=== PATIENT | female | born 1990 | race Caucasian/White ===

== ENCOUNTER 2025-01-19 06:22 | Inpatient (IN) | payer MEDICAID, SELFPAY ==
[2025-01-19] VITALS (53 sets, daily range): BP systolic 117–190; BP diastolic 61–116; PULSE 49–149; RESP 16; TEMP 36.6–36.7; O2SAT 82–100; BMI 45.7
[2025-01-19 06:56] LABS: Hematocrit 34.4 % (36-47); Hemoglobin 11.10 g/dL (11.27-16.99); Mean Corpuscular HGB Conc 32.3 g/dL (30-55); Mean Corpuscular Hemoglobin 28.5 pg (27-33); Mean Corpuscular Volume 88.2 fl (85-98); Nucleated Red Blood Cells % 0 %; Platelet Count 224 10^3/cmm (157-399); Red Blood Count 3.90 10^6/uL (3.85-5.65); White Blood Count 15.33 10^3/uL (3.29-11.43)
[2025-01-19] MEDS: ampicillin 2,000 MG in sodium chloride 0.9% (plus) 50 ML 100 MG IV (06:59)
[2025-01-19 07:18] LABS: Hepatitis B Surface Antigen Non-Reactive (Nonreactive)
--- NOTE | 2025-01-19 07:18 | PM.OBGYHP ---
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 Patient denies rupture membranes. Patient denies receiving any care during this . History of last with no care. Patient gives history of smoking marijuana throughout , last encounter 2 days ago. EFM?category 1 Cervix?8 cm / 90%/-2 vertex with bloody show Fundal height?39 cm Management of labor reviewed with patient, with unknown GBS status will start ampicillin. Review of Systems General: Reports: 10 or more systems reviewed and unremarkable except in HPI and below Medications/Allergies Home Medications ?Medication ?Instructions ?Recorded ?Confirmed ?Last Taken ?Type albuterol 90 mcg/actuation aerosol 90 mcg inhalation PRN PRN 01/19/25 01/19/25 Unknown History inhaler Shortness Of Breath Or Wheezing ibuprofen 400 mg tablet 400 mg PO Q6H PRN Pain 01/19/25 01/19/25 Unknown History Allergies Allergy/AdvReac Type Severity Reaction Status Date / Time fish oil Allergy ALGY-Anaphy Verified 01/19/25 07:14 laxis History History History 4 Term Miscarriages/Ectopic Living Children 3 Vitals/I&O/Wt Last Vital Signs Pulse 64 01/19/25 07:09 BP 152/88 01/19/25 07:09 Weight last 48 hrs Weight 132.449 kg Weight 132.449 kg Physical Exam Const: COMMON NORMALS: no acute distress, patient oriented x3, healthy appearing, alert and well nourished HENMT: COMMON NORMALS: normocephalic Resp: COMMON NORMALS: normal respiratory effort and clear to auscultation bilaterally Cardio: COMMON NORMALS: regular rate and regular rhythm Back/Pelvis: OTHER: Abdomen soft Fundal height 39 cm Extremity: COMMON NORMALS: no clubbing, cyanosis or edema and no calf tenderness Neuro: COMMON NORMALS: patient oriented x3 and moves all extremities Data 01/19/25 06:40 Results Labs OB ([facility]): Blood Type Pending Today Antibody Screen Pending Today Hct, (36-47) 34.4 % L Today Hgb, (11.27-16.99) 11.10 g/dL L Today Rho(D) Type Pending Today Plt Count, (157-399) 224 10^3/cmm Today Hep Bs Antigen, (Nonreactive) Non-reactive Today Rubella IgG Antibody, (0.0-10.0) 22.9 IU/mL H Today RPR Pending Today HIV 1&2 Ab & HIV 1 Ag, (Non-Reactiv) Non-reactive Today Hemoglobin A1c, (4.0-6.0) 5.4 % Today A&P Assessment and plan 1. 39 weeks gestation of : A 1. Estimated gestational age based on fundal height measurement of 39 cm 2. Active labor 3. Unknown GBS 4. No care 5. History of marijuana use during this 2. No care in current : 3. Asthma: PDMP PDMP Reviewed: Not Reviewed Attestations Medical Necessity Statement*: 34-year-old female G4, P3 with unknown LMP estimated 39 weeks gestation by fundal height admitted to labor and delivery for management of labor in active labor at 8 cm. Coding Level of Care Code Acute Code for Chg Fwd Diagnoses 39 weeks gestation of Z3A.39 No care in current O09.30 Asthma J45.909
[2025-01-19 07:19] LABS: Estmated Average Glucose 108; Hemoglobin A1C 5.4 % (4.0-6.0)
[2025-01-19 07:26] LABS: HIV 1 & 2 Antigen Non-Reactive (Non-Reactiv)
[2025-01-19 07:48] LABS: Rapid Plasma Reagin Syphilis Nonreactive (Nonreactive)
[2025-01-19] MEDS: ROPivacaine premix 200 MG/100 ML PREMIX 10 MG EPIDURAL (08:01)
--- NOTE | 2025-01-19 08:09 | ANES.PREANE2 ---
Pre-Anesthetic Assessment Height/Weight: Height 5 ft 7 in Weight 292 lb Pulse BP Pulse Ox 64 131/68 99 01/19/25 08:06 01/19/25 08:06 01/19/25 08:05 Preop Diagnosis: IUP Was Beta Garett taken within 24 hours: N/A Was Clonidine taken within 24 hours: N/A Social No alcohol and No tobacco Exam alert, oriented x 3, clear to auscultation bilaterally and regular rate & rhythm Airway Submandibular: within normal limits Cervical ROM: within normal limits Mallampati: Class II Dentition: full Anesthetic Plan ASA status: 3 Anesthesia: Regional (specify below) Other: Patient presents in active labor, suspected 33 weeks. No care Patient states that she has had multiple epidurals in the past without issues Denies any cardiac or pulmonary issues Labs reviewed, WBC 15. Platelet count 224 Plan for CSE Medications/Allergies Home Medications ?Medication ?Instructions ?Recorded ?Confirmed ?Last Taken ?Type albuterol 90 mcg/actuation aerosol 90 mcg inhalation PRN PRN 01/19/25 01/19/25 Unknown History inhaler Shortness Of Breath Or Wheezing ibuprofen 400 mg tablet 400 mg PO Q6H PRN Pain 01/19/25 01/19/25 Unknown History Allergies Allergy/AdvReac Type Severity Reaction Status Date / Time fish oil Allergy ALGY-Anaphy Verified 01/19/25 07:14 laxis Current Medications Generic Name Dose Route Start Last Admin Trade Name Freq PRN Reason Stop Dose Admin Lactated Ringer's 1,000 mls @ 999 mls/hr 01/19/25 06:53 01/19/25 06:58 Lactated Ringers IV 999 mls/hr .Q1H1M PRN Administration See label comments Ropivacaine 200 mg in 100 mls @ 10 mls/hr 01/19/25 07:00 01/19/25 08:01 Naropin Premix EPIDURAL 10 mls/hr .Q10H ANNALISE Administration PFSH Anesthesia Female Reproductive History : 4 Data Anesthesia 01/19/25 06:40 Short CBC 01/19/25 Range/Units 06:40 WBC 15.33 H (3.29-11.43) 10^3/uL Hgb 11.10 L (11.27-16.99) g/dL Hct 34.4 L (36-47) % MCV 88.2 (85-98) fl Plt Count 224 (157-399) 10^3/cmm Neut % (Auto) 87.1 % Neut # (Auto) 13.36 H (1.8-7.7) 10^3/uL
--- NOTE | 2025-01-19 08:11 | ANES.PROC ---
Anesthesia Procedures Procedure/Date: 01/19/25 Epidural: Time Out Performed: Yes Consents Signed: Procedure Consent Consent: requested by attending/covering physician and from patient Lumbar Level: L3-L4 Epidural position: sitting Additional Comments: Sterile prep of the area was performed. 1% lidocaine was used to numb the skin. 18-gauge epidural needle was then introduced until [id number] was achieved around 8 cm. 27-gauge spinal spinal needle was then introduced into the intrathecal space. 1 cc of 0.25% bupivacaine was then injected into the intrathecal space. Spinal needle was removed and epidural catheter was then advanced. Catheter was left at 15 cm to the skin. Sterile dressing was applied. Patient tolerated procedure well
[2025-01-19 08:49] LABS: PCP Screen Urine Negative (Negative)
--- NOTE | 2025-01-19 08:58 | PM.OBGYPN ---
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 Patient admitted to labor and delivery after arrival by ambulance, nursing staff evaluated and noted cervix to be 8 cm dilated. After 2 hours of observation patient cervix has essentially not changed. She is just received an epidural for pain management, I reevaluated her cervix to be 8 to 9 cm / 90%/0 vertex presentation. Discussed with patient use of Pitocin to augment labor for better contraction pattern to assist in delivery. EFM?category 2 with variables. Splane to patient, patient verbalizes understanding we will watch closely. Labor: Station: -1 Amniotic Membrane Status: Unknown Monitor Mode: External Contraction Pattern: Regular Vitals/I&O/Wt Last Vital Signs Pulse 54 L 01/19/25 08:55 BP 128/61 01/19/25 08:55 Pulse Ox 100 01/19/25 08:55 Weight last 48 hrs Weight 132.449 kg Weight 132.449 kg Data 01/19/25 06:40 A&P Assessment and plan 1. No care in current : 2. 39 weeks gestation of : PDMP PDMP Reviewed: Not Reviewed Attestations Medical Necessity Statement*: Patient admitted to labor and delivery in active labor at 8 cm for management of labor. Coding Level of Care Code Acute Code for Chg Fwd Diagnoses No care in current O09.30 39 weeks gestation of Z3A.39
[2025-01-19] MEDS: oxytocin 30 UNIT/500 ML BAG IV (09:00)
--- NOTE | 2025-01-19 10:04 | PM.DELIVERY ---
Delivery Note: Date of delivery: January 19, 2025 Pre-delivery diagnoses: 1. 34-year-old female G4, P3 with unknown BRANDIE 2. Estimated 39-week gestation by fundal height 3. No care 4. Unknown GBS status 5. Multiparity 6. Asthma 7. Use of marijuana during Post-delivery diagnoses: Same Procedure: of viable male Op report anesthesia: Epidural Delivering Physician: Erin Ghosh DO Estimated blood loss (mL): 300 Delivery: 34-year-old female G4, P4 delivered via of viable male infant ROP presentation. The vertex presented after pushing with bradycardia in the 80s. The anterior followed by the posterior shoulders delivered with the remainder of the baby's body to follow. The umbilical cord was clamped and cut baby placed on the warmer for nursing evaluation. The baby had a muffled cry and grimace. The nursing staff did lead 10 cc of thick mucousy fluid. Drying and stimulation occurred followed by oxygen. Arterial and venous blood gases were drawn as well as cord blood and handed off. The uterus was massaged and the placenta presented in a Morgan presentation with trailing membranes. The vaginal vault was explored with no lacerations noted. The uterus continued to be massaged and firmed well. IV solution containing Pitocin was started in a bolus manner. The placenta was evaluated and appeared complete with no obvious abnormalities. Discussion with mom the baby is requiring oxygen, O2 level in the 80s, will transport to nursery for further care and evaluation. Certified Pediatric Nurse Practitioner and route. Weight?pending ?pending Post-Delivery Status: Stable History History History 4 Term Miscarriages/Ectopic Living Children 4 A&P Assessment and plan 1. Spontaneous vaginal delivery: 2. No care in current : Plan: Began care PDMP PDMP Reviewed: Not Reviewed Coding Level of Care Code Acute Code for Chg Fwd Diagnoses Spontaneous vaginal delivery O80 No care in current O09.30
[2025-01-19 10:27] LABS: Neisseria Gonorrhea NOT DETECTED (Negative)
[2025-01-19] MEDS: alum-mag-hydroxide-sime 30 mL UDC PO (21:10)
[2025-01-19 23:32] LABS: Hematocrit 30.9 % (36-47); Hemoglobin 9.80 g/dL (11.27-16.99); Mean Corpuscular HGB Conc 31.7 g/dL (30-55); Mean Corpuscular Hemoglobin 28.4 pg (27-33); Mean Corpuscular Volume 89.6 fl (85-98); Platelet Count 223 10^3/cmm (157-399); Red Blood Count 3.45 10^6/uL (3.85-5.65); White Blood Count 11.88 10^3/uL (3.29-11.43)
[2025-01-20 01:12] VITALS: O2SAT 97
[2025-01-20 01:41] VITALS: PULSE 78; RESP 18; O2SAT 97
[2025-01-20 04:40] VITALS: BP 134/78; PULSE 66; RESP 15; TEMP 36.4; O2SAT 98
[2025-01-20 05:16] LABS: Hematocrit 28.6 % (36-47); Hemoglobin 9.20 g/dL (11.27-16.99); Mean Corpuscular HGB Conc 32.2 g/dL (30-55); Mean Corpuscular Hemoglobin 29.2 pg (27-33); Mean Corpuscular Volume 90.8 fl (85-98); Nucleated Red Blood Cells % 0 %; Platelet Count 180 10^3/cmm (157-399); Red Blood Count 3.15 10^6/uL (3.85-5.65); White Blood Count 8.90 10^3/uL (3.29-11.43)
[2025-01-20 07:35] VITALS: PULSE 80; RESP 18; O2SAT 98
[2025-01-20 08:22] VITALS: BP 121/80; PULSE 57; RESP 15; TEMP 36.6; TEMP 36.7; O2SAT 98
--- NOTE | 2025-01-20 08:25 | ANE.PACU2 ---
Inpatient post-anesthesia follow up: Airway intact: Yes Vital signs: Temperature 98 F Pulse Rate 75 Respiratory Rate 15 Blood Pressure 125/80 Pulse Oximetry 97 Oxygen Delivery Me thod Room Air Oxygen Flow Rate Fraction of Inspir ed Oxygen Hydration adequate: Yes Nausea and vomiting: No Pain level: 1 Mental status: Baseline Epidural Start/End: Epidural Start Date: 01/19/25 Epidural Start Time: 07:40 Epidural End Date: 01/19/25 Epidural End Time: 13:51
--- NOTE | 2025-01-20 12:05 | PM.OBGYPN ---
IOS ARCHITECT Subjective Subjective: Interval history: no c/o no bleeding, pain no dizziness, palpitations, weakness, shortness of breath eating, voiding, ambulating well caring for without any problems Labor: Station: +1 Amniotic Membrane Status: Unknown Monitor Mode: External Contraction Pattern: Regular Vitals/I&O/Wt Last Vital Signs Temp 98 F 01/20/25 16:34 Pulse 75 01/20/25 16:34 Resp 15 01/20/25 16:34 BP 125/80 01/20/25 16:34 Pulse Ox 97 01/20/25 16:34 O2 Del Method Room Air 01/20/25 07:35 Physical Exam Narrative: afebrile, VS normal comfortable, awake, alert Abd: soft, nontender. fundus firm Ext: no edema; nontender Admission Hgb 9.8 PP Hgb 9.2 Urinary Catheter Management: Davila: Cath Placed During This Visit: yes, but has since been removed by the nurse Reason for Continuing Indwelling Catheter: Decision to DC Catheter Urinary Catheter Date of Insertion: 01/19/25 Urinary Catheter Time of Insertion: 08:00 Date Urinary Catheter Removed: 01/19/25 Time Urinary Catheter Discontinued: 09:33 Data 01/20/25 04:50 A&P Assessment and plan 1. Spontaneous vaginal delivery: PPD #1 doing well discharge to home today instructions and precautions given call/return if fever, chills, headache, blurry vision, nausea, vomiting, abdominal pain; vaginal bleeding or discharge; shortness of breath, chest pain, leg pains or swelling; inability to void, perineal pain or swelling; feelings of depression or mood changes; thoughts of suicide or harming others; inability to care for baby. f/u in 2 weeks with [facility] or with her own provider of choice 2. Anemia: take iron BID eat iron-rich foods f/u in 2 weeks with [facility] clinic or with her own provider of choice PDMP PDMP Reviewed: Not Reviewed Attestations Medical Necessity Statement*: patient s/p vaginal delivery, plan to discharge to home today Coding Level of Care Code Acute Code for Chg Fwd Diagnoses Spontaneous vaginal delivery O80 Anemia D64.9
--- NOTE | 2025-01-20 12:10 | PM.OBGYDC ---
Discharge Providers PHYSICIAN VICE PRESIDENT Date of Admission: 01/19/25 06:22 Date of Discharge: 01/20/25 Attending Provider at Admission: Erin Ghosh DO Attending Provider at Discharge: Chris Leblanc MD Consults: none Diagnoses at Discharge Discharge Diagnosis 1. Spontaneous vaginal delivery: Details from hospital stay: 34 y.o. no care unknown EDC presented to L&D c/o painful uterine contractions on admission, cervix was 8 cm / 90 / -2 / Vtx patient proceeded to deliver vaginally without any complications there were no perineal lacerations patient did well post- She was discharged to home on the first day She was instructed to seek care within two weeks, either at [facility] OB clinic or a provider of her choice 2. Anemia: Reason for Visit Reason for Visit: ems labor Brief History: 34 y.o. no care unknown EDC presented to L&D c/o painful uterine contractions Hospital Course Hospital Course 34 y.o. no care unknown EDC presented to L&D c/o painful uterine contractions on admission, cervix was 8 cm / 90 / -2 / Vtx patient proceeded to deliver vaginally without any complications there were no perineal lacerations patient did well post- She was discharged to home on the first day She was instructed to seek care within two weeks, either at [facility] OB clinic or a provider of her choice Information Peripartum Data: Infant Delivery Method: Vaginal Laceration description: None Episiotomy description: None complications: none Physical Exam Narrative: afebrile, VS normal comfortable, awake, alert Lungs: clear Cor: RRR Abd: soft, nontender. fundus firm Ext: no edema; nontender Admission Hgb 9.8 PP Hgb 9.2 Urinary Catheter Management: Davila: Cath Placed During This Visit: yes, but has since been removed by the nurse Reason for Continuing Indwelling Catheter: Decision to DC Catheter Urinary Catheter Date of Insertion: 01/19/25 Urinary Catheter Time of Insertion: 08:00 Date Urinary Catheter Removed: 01/19/25 Time Urinary Catheter Discontinued: 09:33 History History History 4 Term Miscarriages/Ectopic Living Children 4 Discharge Data Studies Completed and Pending Laboratory Results WBC 8.90 10^3/uL (3.29-11.43) 01/20/25 04:50 RBC 3.15 10^6/uL (3.85-5.65) L 01/20/25 04:50 Hgb 9.20 g/dL (11.27-16.99) L 01/20/25 04:50 Hct 28.6 % (36-47) L 01/20/25 04:50 MCV 90.8 fl (85-98) 01/20/25 04:50 MCH 29.2 pg (27-33) 01/20/25 04:50 MCHC 32.2 g/dL (30-55) 01/20/25 04:50 RDW 16.1 % (12.1-15.1) H 01/20/25 04:50 Plt Count 180 10^3/cmm (157-399) 01/20/25 04:50 MPV 9.6 fL (7.4-10.4) 01/20/25 04:50 Neut % (Auto) 71.6 % 01/20/25 04:50 Lymph % (Auto) 20.0 % 01/20/25 04:50 [place] % (Auto) 6.1 % 01/20/25 04:50 Eos % (Auto) 1.0 % 01/20/25 04:50 Baso % (Auto) 0.3 % 01/20/25 04:50 Neut # (Auto) 6.37 10^3/uL (1.8-7.7) 01/20/25 04:50 Lymph # (Auto) 1.8 10^3/uL (0.8-4.8) 01/20/25 04:50 [place] # (Auto) 0.5 10^3/uL (0.2-0.9) 01/20/25 04:50 Eos # (Auto) 0.1 10^3/uL (0.0-0.8) 01/20/25 04:50 Baso # (Auto) 0.0 10^3/uL (0.0-0.1) 01/20/25 04:50 Nucleated RBC % (auto) 0 % 01/20/25 04:50 Nucleated RBCs # 0.0 /100WBC 01/20/25 04:50 Estimat Average Glucose 108 01/19/25 06:40 Hemoglobin A1c 5.4 % (4.0-6.0) 01/19/25 06:40 Urine Opiates Screen Negative ng/mL (Negative) 01/19/25 08:30 Ur Barbiturates Screen Negative ng/mL (Negative) 01/19/25 08:30 Ur Phencyclidine Scrn Negative ng/mL (Negative) 01/19/25 08:30 Ur Amphetamines Screen Negative ng/mL (Negative) 01/19/25 08:30 U Benzodiazepines Scrn Negative ng/mL (Negative) 01/19/25 08:30 Urine Cocaine Screen Negative ng/mL (Negative) 01/19/25 08:30 U Marijuana (THC) Screen Positive ng/mL (Negative) H 01/19/25 08:30 RPR Nonreactive (Nonreactive) 01/19/25 06:40 C. trachomatis (PCR) Not detected (Negative) 01/19/25 08:30 Hep Bs Antigen Non-reactive (Nonreactive) 01/19/25 06:40 Hepatitis C Antibody Non-reactive (Nonreactive) 01/19/25 06:40 HIV 1&2 Ab & HIV 1 Ag Non-reactive (Non-Reactiv) 01/19/25 06:40 HIV 1&2 Antibody Non-reactive (Non-Reactiv) 01/19/25 06:40 N. gonorrhoeae (PCR) Not detected (Negative) 01/19/25 08:30 Rubella IgG Antibody 22.9 IU/mL (0.0-10.0) H 01/19/25 06:40 Blood Type Subgroup of B Pos 01/19/25 06:40 Rho(D) Type Rh positive 01/19/25 06:40 Antibody Screen Negative 01/19/25 06:40 Procedures Performed vaginal delivery Vitals Last Vital Signs Temp 98 F 01/20/25 16:34 Pulse 75 01/20/25 16:34 Resp 15 01/20/25 16:34 BP 125/80 01/20/25 16:34 Pulse Ox 97 01/20/25 16:34 O2 Del Method Room Air 01/20/25 07:35 Results Labs OB ([facility]): Blood Type Subgroup of B Pos 01/19/25 Antibody Screen Negative 01/19/25 Hct, (36-47) 28.6 % L 01/20/25 Hgb, (11.27-16.99) 9.20 g/dL L 01/20/25 Rho(D) Type Rh positive 01/19/25 Plt Count, (157-399) 180 10^3/cmm 01/20/25 Hep Bs Antigen, (Nonreactive) Non-reactive 01/19/25 Hepatitis C Antibody, (Nonreactive) Non-reactive 01/19/25 Rubella IgG Antibody, (0.0-10.0) 22.9 IU/mL H 01/19/25 RPR, (Nonreactive) Nonreactive 01/19/25 HIV 1&2 Ab & HIV 1 Ag, (Non-Reactiv) Non-reactive 01/19/25 Hemoglobin A1c, (4.0-6.0) 5.4 % 01/19/25 Urine Opiates Screen, (Negative) Negative ng/mL 01/19/25 Ur Barbiturates Screen, (Negative) Negative ng/mL 01/19/25 Ur Phencyclidine Scrn, (Negative) Negative ng/mL 01/19/25 Ur Amphetamines Screen, (Negative) Negative ng/mL 01/19/25 U Benzodiazepines Scrn, (Negative) Negative ng/mL 01/19/25 Urine Cocaine Screen, (Negative) Negative ng/mL 01/19/25 U Marijuana (THC) Screen, (Negative) Positive ng/mL H 01/19/25 Discharge Plan Discharge Patient Disposition: Home Condition: Stable Prescriptions: New ferrous fumarate-folic acid 324 mg (106 mg iron)-1 mg tablet 1 tab PO DAILY Qty: 90 0RF Rx Instructions: administer between meals Continued ibuprofen 400 mg Tablet 400 mg PO Q6H PRN (Reason: Pain) albuterol 90 mcg/actuation Aerosol 90 mcg INHALATION PRN PRN (Reason: Shortness Of Breath Or Wheezing) Discharge Order = DC NOW: Discharge Order (Routine); Ordered 01/20/25 Ordered By: Chris Leblanc Referrals: Ashwin Ramsay MD [Physician, PHYSICIAN VICE PRESIDENT] - 03/02/25 12:45 pm Discharge Diet: Usual diet Discharge Activity: Increase activity as tolerated Patient Instructions: Depression (DC), Preeclampsia and Eclampsia After Delivery (GEN), Hemorrhage (DC), OB Discharge Report, OB Food/Drug Interaction Guide, Opioid Safety, OB Home Care, OB Vaginal Deliveries - [facility], Patient Portal & Mark Instructions, Abnormal Bleeding Activity Restrictions/Additional Instructions: take iron as prescribed for anemia followup with an obstetric provider within two weeks Discharge Attestations PHYSICIAN VICE PRESIDENT Time Spent in Discharge Care*: less than 30 min Coding Level of Care Code Acute Code for Chg Fwd Diagnoses Spontaneous vaginal delivery O80 Anemia D64.9
[2025-01-20 16:34] VITALS: BP 125/80; PULSE 75; RESP 15; TEMP 36.6; O2SAT 97
== END 2025-01-20 16:34 | disposition home or self-care (01) | DRG 806 ==
LOC: OPOB 06:22 → OBGYN 09:23
PROVIDERS: Admitting Provider Obstetrics & Gynecology; Visit Provider Obstetrics & Gynecology
DX: O99.02 Anemia complicating childbirth (principal); O99.324 Drug use complicating childbirth; Z37.0 Single live birth; Z3A.39 39 weeks gestation of pregnancy; F12.90 Cannabis use, unspecified, uncomplicated
CPT/HCPCS: 51702; 59025; 59409; 80306; 83036; 85025; 85027; 86592; 86762; 86803; 86850; 86900; 86902; 87340; 87491; 87591; 87806; 94640; 94664; 99211; J0290; J2590; J2795; J3490; J7120; J7611; J9999